=== PATIENT | male | born 1975 | race Caucasian/White ===

== ENCOUNTER 2017-04-01 13:26 | Emergency (ER) | payer OTHER ==
[~2017-04-01] VITALS: Wt 86.5 kg
[2017-04-01] MEDS ORDERED: HYDR-906 PO (14:58)
[2017-04-01] MEDS ORDERED: CLIN-73 PO (14:58)
[2017-04-01 15:39] VITALS: BP 120/81; PULSE 77; RESP 18
--- NOTE | 2017-04-01 16:11 | ERD ---
ER Documentation Chief Complaint Date/Time DATE: 04/01/17 TIME: 16:09 Chief Complaint TOOTHACHE HPI This is a 41-year-old male presents to the ER with a toothache that started 2 days ago. Patient states that her tooth broke and that since then he has been experiencing pain. This morning he woke up with swelling to the area. He denies any fevers or chills. Has any problems swallowing denies any other facial swelling. ROS 12 point review of systems was done, all negative except per HPI.. Medications Home Meds Active Scripts Hydrocodone/Acetaminophen ([place] 5-325 Tablet) 1 Each Tablet, 1 EACH PO Q6, #15 TAB Prov:ALFACORNELLMIGUEL C 04/01/17 Clindamycin Hcl* (Clindamycin Hcl*) 300 Mg Capsule, 300 MG PO TID for 10 Days, CAP Prov:ALFAMIGUEL Poe 04/01/17 PMhx/Soc Medical and Surgical Hx: pt denies Medical Hx, pt denies Surgical Hx Hx Alcohol Use: No Hx Substance Use: No Hx Tobacco Use: No Smoking Status: Never smoker Physical Exam Vitals Vital Signs Date Time Temp Pulse Resp B/P Pulse Ox O2 Delivery O2 Flow Rate FiO2 04/01/17 15:39 77 18 120/81 99 Room Air 04/01/17 13:37 96.8 69 18 128/72 99 Physical Exam GENERAL: The patient is well developed and appropriate for usual state of health , in no apparent distress. HEENT: Atraumatic. A molar broken on the left upper side. no tenderness or fullness when palpating the bottom of the mouth CHEST: Clear to auscultation bilaterally. There are no rales, wheezes or rhonchi. HEART: Regular rate and rhythm. No murmurs, clicks, rubs or gallops. NEURO: Alert and oriented. SKIN: There is no apparent rash or petechia. The skin is warm and dry. Procedures/MDM Is a 41-year-old male presents to the ER with dental pain, patient does appear to have a small abscess. Patient is not having difficulty in breathing or swallowing. Suspicion for Bao's angina or deep space infection is low. Patient will be sent with antibiotics and with [place]. He urgently needs to follow-up with dentist as soon as possible to ER sooner if symptoms worsen. My medical decision making shared with the patient he understands and agrees with plan. Departure Diagnosis: Primary Impression: Pain, dental Condition: Stable Patient Instructions: Dental Abscess Additional Instructions: Call your primary care doctor TOMORROW for an appointment during the next 1-2 days.See the doctor sooner or return here if your condition worsens before your appointment time. MIGUEL GRIMM Apr 01, 2017 16:11
== END 2017-04-01 15:30 | disposition home or self-care (01) ==
LOC: FTE 13:26
DX: K08.89 Other specified disorders of teeth and supporting structures (principal)
CPT/HCPCS: 99284

== ENCOUNTER 2017-06-05 12:25 | Emergency (ER) | payer OTHER ==
[~2017-06-05] VITALS: Ht 185.4 cm; Wt 85.0 kg
[~2017-06-05 12:25] MED LIST: CLIN-73 PO; HYDR-906 PO
[2017-06-05 12:27] VITALS: Ht 185.4 cm; Wt 85.0 kg
[2017-06-05] MEDS ORDERED: HYDR-906 PO (13:48)
[2017-06-05] MEDS ORDERED: CLIN-73 PO (13:48)
[2017-06-05] MEDS ORDERED: IBUP-1542 PO (13:49)
--- NOTE | 2017-06-05 13:58 | ERD ---
ER Documentation Chief Complaint Chief Complaint Complains of left upper molar pain. HPI Patient is a 39-year-old male who presents ED for concerns of left upper molar tooth pain 3 days. Patient states he had similar pain approximately 2 months ago. Patient reports taking antibiotics and having full resolution of his pain. Patient did not follow-up with the dentist at that time. She states that his pain restarted 3 days ago. Patient describes the pain to be localized to the left upper molars. Patient denies any fevers, chills, nausea, vomiting, throat pain, cough, chest pain, shortness breath or loss consciousness. Patient has normal range of motion of his jaw. Patient denies any trauma or falls. ROS All systems reviewed and are negative except as per history of present illness. Medications Home Meds Active Scripts Ibuprofen* (Motrin*) 600 Mg Tab, 600 MG PO Q6, #30 TAB Prov:BRIGID DAVILA-C 06/05/17 Hydrocodone/Acetaminophen ([place] 5-325 Tablet) 1 Each Tablet, 1 TAB PO Q6H Y for PAIN, #7 TAB Prov:BRIGID DAVILA PA-C 06/05/17 Clindamycin Hcl* (Clindamycin Hcl*) 300 Mg Capsule, 300 MG PO TID for 10 Days, CAP Prov:BRIGID DAVILA-C 06/05/17 Hydrocodone/Acetaminophen ([place] 5-325 Tablet) 1 Each Tablet, 1 EACH PO Q6, #15 TAB Prov:MIGUEL GRIMM C 04/01/17 Clindamycin Hcl* (Clindamycin Hcl*) 300 Mg Capsule, 300 MG PO TID for 10 Days, CAP Prov:ALFAMIGUEL FARAH C 04/01/17 Allergies Allergies: Coded Allergies: No Known Allergy (Unverified , 06/05/17) PMhx/Soc History of Surgery: No Anesthesia Reaction: No Hx Neurological Disorder: No Hx Respiratory Disorders: No Hx Cardiac Disorders: No Hx Psychiatric Problems: No Hx Miscellaneous Medical Probl: No Hx Alcohol Use: No Hx Substance Use: No Hx Tobacco Use: No Smoking Status: Never smoker Physical Exam Vitals Vital Signs Date Time Temp Pulse Resp B/P Pulse Ox O2 Delivery O2 Flow Rate FiO2 06/05/17 12:27 86 20 134/78 99 Physical Exam GENERAL: Well-developed, well-nourished female. Appears in no acute distress. Aching in full sentences. HEAD: Normocephalic, atraumatic. EYES: Pupils are equally reactive bilaterally. EOMs grossly intact. No conjunctival erythema. ENT: Moist mucous membranes. No uvula deviation. No kissing tonsils. Tender to palpation of the left upper molars. Gum line appears erythematous with swelling. No trismus. No drooling. NECK: Supple. No meningismus. Normal range of motion of the neck. No hyperextension of the neck. LUNG: Clear to auscultation bilaterally. No rhonchi, wheezing, rales or coarse breath sounds. HEART: Regular rate and rhythm. No murmurs, rubs or gallops. EXTREMITIES: Equal pulses bilaterally. No peripheral clubbing, cyanosis or edema. No unilateral leg swelling. NEUROLOGIC: Alert and oriented. Moving all four extremities without any difficulty. Normal speech. Steady gait. SKIN: Normal color. Warm and dry. No rashes or lesions. Results 24 hrs Current Medications Medications (Trade) Dose Ordered Sig/Cara Route PRN Reason Start Time Stop Time Status Last Admin Dose Admin Sodium Chloride (NS) 1,000 ml @ 1,000 mls/hr Q1H STAT IV 06/05/17 14:18 06/05/17 15:17 DC Procedures/MDM Medical decision-making: This is a 42-year-old male who presents to the ED for concerns of left upper tooth pain 3 days. Patient had similar pain approximately 2 months ago which he took oral antibiotics for and his pain resolved intermittently. Patient states pain started again 3 days ago. Patient has not seen a dentist. Denied any fevers. Vital signs were reviewed. Patient is afebrile. Patient is not hypoxic. At this time, the patient's presentation is most consistent with dental caries vs. tooth abscess. I have a much lower clinical concern for epiglottitis, strep pharyngitis, peritonsillar abscess, retropharyngeal abscess or [place]igs angina. Patient was stable at time of discharge. Is nontoxic, non- ill-appearing. Prescriptions: Clindamycin, [place], ibuprofen Discharge: Patient advised to complete full course of antibiotics. A prescription for Tylenol/Ibuprofen was provided for pain/fever control. I have instructed the patient to see a dentist today or tomorrow. I have instructed the patient to promptly return to the ER for any new or worsening symptoms including increased pain, fever, neck swelling/stiffness, drooling, rash or difficulty breathing. The patient and/or family expressed understanding of and agreement with this plan. All questions were answered. Home care instructions were provided. Disclaimer: Inadvertent spelling and grammatical errors are likely due to EHR/ dictation software use and do not reflect on the overall quality of patient care. Also, please note that the electronic time recorded on this note does not necessarily reflect the actual time of the patient encounter. Departure Diagnosis: Primary Impression: Pain, dental Condition: Stable Patient Instructions: Dental Abscess, Dental Pain Additional Instructions: Call your DENTIST TOMORROW for an appointment during the next 1-2 days.See the doctor sooner or return here if your condition worsens before your appointment time. BRIGID DAVILA PA-C Jun 05, 2017 13:58
[2017-06-05] MEDS ORDERED: SOD CHLORIDE 0.9% 1,000 ML IV STA (14:18)
== END 2017-06-05 14:19 | disposition home or self-care (01) ==
LOC: FTE 12:25
DX: K08.89 Other specified disorders of teeth and supporting structures (principal)
CPT/HCPCS: J7030; Z7502; 99284

== ENCOUNTER 2017-06-27 16:03 | Emergency (ER) | END 2017-06-27 17:04 | disposition home or self-care (01) ==

== ENCOUNTER 2018-09-26 10:56 | Emergency (ER) | payer OTHER ==
[~2018-09-26] VITALS: Wt 89.0 kg
[~2018-09-26 10:56] MED LIST changes: +AMOX1TAB10 PO; -CLIN-73 PO; +CLIN300C10 PO; +HYDR-4011 PO; -HYDR-906 PO; +IBUP-1542 PO
[2018-09-26 10:59] VITALS: BP 144/82; PULSE 90; RESP 18
[2018-09-26] MEDS ORDERED: ONDANSETRON (ODT) 4 MG TAB ODT STA (11:39)
[2018-09-26] MEDS ORDERED: NAPR-985 PO (11:41)
[2018-09-26] MEDS ORDERED: ONDA4TAB14 PO (11:41)
[2018-09-26] MEDS ORDERED: HYDR-4011 PO (11:41)
[2018-09-26] MEDS ORDERED: CLIN300C10 PO (11:41)
--- NOTE | 2018-09-26 11:53 | ERD ---
ER Documentation Chief Complaint Chief Complaint TOOTH ACHE WITH SWELLING HPI 43-year-old male presenting with pain to left upper jaw space. Patient states that this morning he woke up with swelling to his gums. He used hydrogen peroxide but no other medications. He has no pain with eye movement. He has no trouble swallowing or breathing. Has no fevers. Denies other medical problems. NKDA. Surgical history denies. Social history smokes 5 cigarettes a day. ROS All systems reviewed and are negative except as per history of present illness. Medications Home Meds Active Scripts Ondansetron (Ondansetron Odt) 4 Mg Tab.rapdis, 4 MG PO Q6H PRN for NAUSEA AND/OR VOMITING, #10 TAB Prov:CARINA BLACKBURN PA-C 09/26/18 Naproxen* (Naprosyn*) 500 Mg Tablet, 500 MG PO BID PRN for PAIN AND/OR INFLAMMATION, #30 TAB Prov:CARINA BLACKBURN PA-C 09/26/18 Hydrocodone/Acetaminophen ([place] 5-325 Tablet) 1 Each Tablet, 1 TAB PO Q6H PRN for PAIN, #7 TAB Prov:CARINA BLACKBURN PA-C 09/26/18 Clindamycin Hcl* (Clindamycin Hcl*) 300 Mg Capsule, 300 MG PO TID for 10 Days, CAP Prov:CARINA BLACKBURN PA-C 09/26/18 Ibuprofen* (Motrin*) 600 Mg Tab, 600 MG PO Q6, #30 TAB Prov:DUGLAS VALLE PA-C 06/27/17 Amoxicillin/Potassium Clav (Amox-Clav 875-125 mg Tablet) 875-125 mg Tab, 1 TAB PO BID for 7 Days, #14 TAB Prov:DUGLAS VALLE PA-C 06/27/17 Ibuprofen* (Motrin*) 600 Mg Tab, 600 MG PO Q6, #30 TAB Prov:BRIGID DAVILA PA-C 06/05/17 Hydrocodone/Acetaminophen ([place] 5-325 Tablet) 1 Each Tablet, 1 TAB PO Q6H PRN for PAIN, #7 TAB Prov:BRIGID DAVILA PA-C 06/05/17 Clindamycin Hcl* (Clindamycin Hcl*) 300 Mg Capsule, 300 MG PO TID for 10 Days, CAP Prov:BRIGID DAVILA PA-C 06/05/17 Hydrocodone/Acetaminophen ([place] 5-325 Tablet) 1 Each Tablet, 1 EACH PO Q6, #15 TAB Prov:MIGUEL GRIMM 04/01/17 Clindamycin Hcl* (Clindamycin Hcl*) 300 Mg Capsule, 300 MG PO TID for 10 Days, CAP Prov:MIGUEL GRIMM 04/01/17 Allergies Allergies: Coded Allergies: No Known Allergy (Unverified , 06/05/17) PMhx/Soc History of Surgery: No Anesthesia Reaction: No Hx Neurological Disorder: No Hx Respiratory Disorders: No Hx Cardiac Disorders: No Hx Psychiatric Problems: No Hx Miscellaneous Medical Probl: No Hx Alcohol Use: No Hx Substance Use: No Hx Tobacco Use: No FmHx Family History: No diabetes, No coronary disease, No other Physical Exam Vitals Vital Signs Date Temp Pulse Resp B/P (MAP) Pulse Ox O2 O2 Flow FiO2 Time Delivery Rate 09/26/18 98.1 90 18 144/82 99 10:59 (102) Physical Exam GENERAL: The patient is well-appearing, well-nourished, in no acute distress HEENT: Atraumatic. Conjunctivae are pink. Pupils equal, round, and reactive to light. There is no scleral icterus. Tympanic membranes clear bilaterally. Oropharynx clear. Broken tooth to left upper jaw space. NECK: C-spine is soft and supple. There is no meningismus. There is no cervical lymphadenopathy. CHEST: Clear to auscultation bilaterally. There are no rales, wheezes or rhonchi. HEART: Regular rate and rhythm. No murmurs, clicks, rubs or gallops. SKIN: Soft tissue swelling noted to the left cheek Results 24 hrs Current Medications Medications Dose Sig/Cara Start Time Status Last (Trade) Ordered Route PRN Stop Time Admin Dose Reason Admin Clindamycin 600 mg ONCE ONCE 09/26/18 DC Phosphate IM 12:00 09/26/18 (Cleocin) 12:00 1 tab ONCE ONCE 09/26/18 09/26/18 Acetaminophen PO 12:09/26/18 11:46 / 12:01 Hydrocodone Bitart ([place] (5/325)) Ondansetron 4 mg ONCE STAT 09/26/18 DC 09/26/18 HCl (Zofran ODT 11:39 09/26/18 11:46 Odt) 11:40 Clindamycin 600 mg ONCE ONCE 09/26/18 Phosphate IM 12:00 09/26/18 (Cleocin) 12:01 Procedures/MDM ER course: Clindamycin, [place] and Zofran given ED. MDM: 43-year-old male presenting with dental abscess. Patient is treated with oral antibiotics. I have low suspicion for meningitis or sepsis. Patient will be treated with oral antibiotics and recommend follow-up with dentist. Patient is told symptoms change or worsen to return to the ER. All questions answered at discharge Departure Diagnosis: Primary Impression: Tooth disease Condition: Stable Patient Instructions: Tooth Abscess Referrals: ANA LAURA MADRIGAL MD (PCP) [facility] DENT[facility] ([facility] walk in clinic) Additional Instructions: FOLLOW UP WITH YOUR PRIMARY CARE PHYSICIAN TOMORROW.Return to this facility if you are not improving as expected. CARINA BLACKBURN PA-C Sep 26, 2018 11:53
[2018-09-26] MEDS ORDERED: HYDROCODONE/APAP (5/325) TAB PO ONE (12:00)
[2018-09-26] MEDS ORDERED: CLINDAMYCIN 600 MG INJ IM ONE (12:00)
[2018-09-26] MEDS ORDERED: CLINDAMYCIN 300 MG INJ IM ONE (12:00)
== END 2018-09-26 12:33 | disposition home or self-care (01) ==
LOC: FTE 10:56
DX: K08.9 Disorder of teeth and supporting structures, unspecified (principal); Z87.891 Personal history of nicotine dependence
CPT/HCPCS: 96372; Z7502; Z7610